=== PATIENT | male | born 1980 | race Asian ===

== ENCOUNTER 2022-01-09 08:04 | Inpatient (IN) | payer BC, SELFPAY ==
[~2022-01-09] VITALS: Ht 175.3 cm; Wt 76.7 kg
--- NOTE | 2022-01-09 08:05 | NUR ---
Pt triaged and placed in room 1 for evaluation. Erlinda RN to assume care of patient.
--- NOTE | 2022-01-09 08:09 | NUR ---
EKG DONE AT BEDSIDE AND GIVEN TO ATTENDING MD
--- NOTE | 2022-01-09 08:11 | NUR ---
Pt BIBA re ALOC s/p suspicion of opiate OD. Pt was given Narcan in the field which was minimally effective. Pt noted to follow simple commands and open his eyes spontaneously, but has L sided weakness from previous CVA. Pt awaiting MD conklin.
--- NOTE | 2022-01-09 08:12 | NUR ---
Dr Lomeli to bedside to assess patient
[2022-01-09 08:13] VITALS: BP_SYST 106
[2022-01-09 09:05] LABS: ANION GAP 9 (5-15); CALCIUM 9.2 mg/dL (8.4-11.0); CHLORIDE 100 mmol/L (98-107); CREATININE 3.24 mg/dL (0.55-1.30); GLUCOSE 108 mg/dL (70-99); POTASSIUM 4.3 mmol/L (3.5-5.1); SODIUM SERUM 135 mmol/L (136-145); UREA NITROGEN, BLOOD 16 mg/dL (8-21)
[2022-01-09 09:08] LABS: BILIRUBIN,URINE NEGATIVE (NEGATIVE); BLOOD, URINE 3+ (NEGATIVE); COLOR,URINE YELLOW (YELLOW); GLUCOSE,URINE NEGATIVE (NEGATIVE); KETONES,URINE NEGATIVE (NEGATIVE); LEUKOCYTE ESTERASE ,URINE 3+ (NEGATIVE); NITRITE, URINE NEGATIVE (NEGATIVE); PH,URINE 6.5 (5.0-8.0); PROTEIN URINE NEGATIVE (NEGATIVE); UROBILINOGEN,URINE 0.2 (0.2-1.0)
[2022-01-09 09:11] LABS: BASOPHILS # (AUTO) 0.1 K/uL (0.0-0.2); BASOPHILS % (AUTO) 0.8 % (0.0-2.0); EOSINOPHILS # (AUTO) 0.2 K/uL (0.0-0.4); EOSINOPHILS % (AUTO) 2.6 % (0.0-4.0); HEMATOCRIT 33.7 % (36-54); HEMOGLOBIN 11.1 g/dL (14.0-18.0); LYMPHOCYTES # (AUTO) 1.1 K/uL (1.0-5.5); LYMPHOCYTES % (AUTO) 12.2 % (20.5-51.5); MEAN CORPUSCULAR HEMOGLOBIN 26 pg (27-31); MEAN CORPUSCULAR HGB CONC 33 % (32-36); MEAN CORPUSCULAR VOLUME 80 fL (79.0-98.0); MONOCYTES # (AUTO) 0.8 K/uL (0.0-1.0); MONOCYTES % (AUTO) 8.5 % (1.7-9.3); NEUTROPHILS # (AUTO) 6.9 K/uL (1.8-7.7); NEUTROPHILS % (AUTO) 75.9 % (40.0-70.0); PLATELET COUNT (AUTO) 581 K/uL (130-430); RED CELL DISTRIBUTION WIDTH 18.2 % (9.0-15.0); WHITE BLOOD COUNT (AUTO) 9.1 K/uL (4.8-10.8)
[2022-01-09 09:13] LABS: GFR AFRICAN AMERICAN 27 mL/min (>90)
[2022-01-09 09:15] LABS: PROTHROMBIN TIME 10.5 SECS (9.5-12.5)
[2022-01-09 09:25] LABS: ALANINE AMINOTRANSFERASE 12 U/L (12-78); ASPARTATE AMINOTRANSFERASE 14 U/L (10-37); TOTAL BILIRUBIN 0.3 mg/dL (0.0-1.0)
[2022-01-09 09:26] LABS: ACETAMINOPHEN < 1 ug/mL (1-30)
[2022-01-09 09:27] LABS: ALCOHOL, BLOOD < 3 mg/dL (<10)
[2022-01-09 09:34] LABS: C-REACTIVE PROTEIN QUANT 9.4 mg/dL (0-0.5)
[2022-01-09 09:39] LABS: BARBITURATE, URINE NEGATIVE (NEG <=200); BENZODIAZEPINE, URINE NEGATIVE (NEG <=150); CANNABINOID, URINE NEGATIVE (NEG <=50); COCAINE, URINE NEGATIVE (NEG <=150); METHAMPHETAMINES SCREEN,URINE NEGATIVE (NEG <=500); OPIATE, URINE NEGATIVE (NEG <=100); PHENCYCLIDINE SCREEN,URINE NEGATIVE (NEG <=25); UR TRICYCLIC ANTIDEPRESSANTS NEGATIVE (NEG <=300); URINE AMPHETAMINE NEGATIVE (NEG <=500); URINE METHADONE NEGATIVE (NEG <=200); URINE OXYCODONE SCREEN NEGATIVE (NEG <=100); URINE PROPOXYPHENE SCREEN NEGATIVE (NEG <=300)
[2022-01-09 09:46] LABS: ACETONE, SERUM NEGATIVE (NEGATIVE)
[2022-01-09 10:04] LABS: CLARITY/URINE SLIGHTLY HAZY (CLEAR)
[2022-01-09] MEDS ORDERED: BACL20TA PO (10:06)
[2022-01-09] MEDS ORDERED: HYDR-4038 PO (10:06)
[2022-01-09] MEDS ORDERED: DOCU250C14 PO (10:06)
[2022-01-09] MEDS ORDERED: LOVI40 SQ (10:06)
[2022-01-09] MEDS ORDERED: FAMO20TA8 PO (10:06)
[2022-01-09] MEDS ORDERED: BENA-6 PO (10:06)
[2022-01-09] MEDS ORDERED: TAMS-11 PO (10:06)
[2022-01-09] MEDS ORDERED: ELA10 PO (10:06)
[2022-01-09] MEDS ORDERED: PROXL60 PO (10:06)
[2022-01-09] MEDS ORDERED: NEU300 PO (10:06)
[2022-01-09 10:09] LABS: BACTERIA,URINE RARE /HPF (None Seen); WBC,URINE 20-50 /HPF (0-3)
--- NOTE | 2022-01-09 10:32 | NUR ---
patient reassess non verbal, unable to follow simple commands, vital stable safety maintained will continue to monitor.
--- NOTE | 2022-01-09 13:47 | NUR ---
Dr Bhardwaj visits patient at bedside no acute changes, mental status unchanged.
[2022-01-09 15:30] VITALS: BP_SYST 158
--- NOTE | 2022-01-09 15:30 | NUR ---
ADMISSION NOTE Received patient from ER via fran, received report from BENOIT Coffey. Patient admitted with diagnosis of Altered level of consciousness, possible overdose. Patient answers few simple "yes/no" questions, oriented only to time and self. Left extremities flaccid. Able to move/lift right extremities but weak. Reoriented to place and event. Oriented on hospital routine, call light, toileting and safety. Patient unable to verbalize understanding; will continue to educate and reorient. Bed locked in lowest position with alarm on. Will continue to monitor.
--- NOTE | 2022-01-09 15:53 | NUR ---
CONSULTATION PAGED REASON FOR CONSULTATION:ALOC WAS CONSULT CALED? PERSON WHO WAS NOTIFIED:TXT MESSAGED CONSULTING PHYSICIAN:DARLENE HENNING MANAGER [place] SPECIALTY:NEURO MANAGER [place] PHONE NUMBER:[phone] REQUESTING PHYSICIAN:ASHELY MCKINNEY
--- NOTE | 2022-01-09 15:58 | NUR ---
Patient will be admitted to care of nurse Grimm. Admitted to unit. Will go to room . Belongings list completed. Complete and up to date summary report printed. SBAR report to be given at bedside with opportunity for questions.
--- NOTE | 2022-01-09 15:58 | NUR ---
CONSULTATION PAGED REASON FOR CONSULTATION:ALOC WAS CONSULT CALED?Y PERSON WHO WAS NOTIFIED:[facility] CONSULTING PHYSICIAN:SHARON HUBBARD OPERATIONS [employer] SPECIALTY:ID OPERATIONS [employer] PHONE [phone]: REQUESTING PHYSICIAN:ASHELY MCKINNEY
--- NOTE | 2022-01-09 17:00 | NUR ---
Notes Patient awake and alert, oriented x 2. Patient's mom at bedside. No pain or distress noted. Call light in reach and bed in lowest position with alarm on. Encouraged to call and will monitor.
[2022-01-09 19:00] VITALS: BP_SYST 140
[2022-01-09] MEDS: D5/0.45 NS 1,000 ML IV SCH (19:09)
--- NOTE | 2022-01-09 19:40 | NUR ---
Closing Note Patient restless and appears anxious. Patient's mom at bedside. Paged Dr. Bhardwaj. Safety precautions throughout shift. Endorsed to night nurse.
[2022-01-09 19:59] LABS: THYROID STIMULATING HORMONE 2.44 uIu/mL (0.36-3.74)
[2022-01-09 20:00] VITALS: BP_SYST 101
[2022-01-09] MEDS: LORazepam 2 MG/ML VIAL IVP PRN (22:03)
[2022-01-10] VITALS: BP_SYST 115; BP_SYST 129
[2022-01-10 07:55] VITALS: BP_SYST 128
--- NOTE | 2022-01-10 08:01 | NUR ---
Received pt. Pt is aaox2, pt is now verbal and responding to verbal. Pt's mom at beside. Pt kept npo , waiting for swallow eval.
[2022-01-10 08:02] LABS: BASOPHILS # (AUTO) 0.1 K/uL (0.0-0.2); BASOPHILS % (AUTO) 1.3 % (0.0-2.0); EOSINOPHILS # (AUTO) 0.2 K/uL (0.0-0.4); EOSINOPHILS % (AUTO) 2.7 % (0.0-4.0); HEMATOCRIT 34.2 % (36-54); HEMOGLOBIN 10.9 g/dL (14.0-18.0); LYMPHOCYTES # (AUTO) 1.6 K/uL (1.0-5.5); LYMPHOCYTES % (AUTO) 17.7 % (20.5-51.5); MEAN CORPUSCULAR HEMOGLOBIN 26 pg (27-31); MEAN CORPUSCULAR HGB CONC 32 % (32-36); MEAN CORPUSCULAR VOLUME 82 fL (79.0-98.0); MONOCYTES # (AUTO) 0.7 K/uL (0.0-1.0); MONOCYTES % (AUTO) 8.3 % (1.7-9.3); NEUTROPHILS # (AUTO) 6.1 K/uL (1.8-7.7); PLATELET COUNT (AUTO) 617 K/uL (130-430); RED BLOOD CELL COUNT(AUTO) 4.19 MIL/uL (4.2-6.2); RED CELL DISTRIBUTION WIDTH 18.7 % (9.0-15.0); WHITE BLOOD COUNT (AUTO) 8.8 K/uL (4.8-10.8)
--- NOTE | 2022-01-10 08:26 | NUR ---
Nutrition Update Harjit Scale 11 noted. Pt admitted for ALOC, overdose. Diet: NPO Pending Swallow Screen BMI: 25 kg/m2 RD to follow per nutrition care standards.
[2022-01-10 08:41] LABS: ALBUMIN 2.7 g/dL (3.4-4.8); CALCIUM 8.9 mg/dL (8.4-11.0); CREATININE 4.1 mg/dL (0.55-1.30); POTASSIUM 4.4 mmol/L (3.5-5.1); TOTAL BILIRUBIN 0.3 mg/dL (0.0-1.0)
--- NOTE | 2022-01-10 11:10 | NUR ---
SPEECH THERAPY WAS CALLED TO [facility] OF [facility], RE: SWALLOWING EVAL (HX OF CVA). LEFT IAN A VOICE MESSAGE.
--- NOTE | 2022-01-10 11:26 | NUR ---
THE SPEECH THERAPIST, AURELIANO IS COMIMG THIS AFTERNOON BETWEEN 1500 - 1700.
--- NOTE | 2022-01-10 13:48 | NUR ---
GRICEL Harrisree here and informed her that pt had not bm for 4 days and mother requesting for lactulose
[2022-01-10] MEDS: D5/0.45 NS 1,000 ML IV SCH ×2 (15:07→17:56)
--- NOTE | 2022-01-10 15:47 | NUR ---
PT WAS SEEN FOR DYSPHAGIA. PT WAS ABLE TO SAFELY SWALLOW PUREE DIET WI9TH THIN LIQUID. MILD DIFFICULTY WITH MASTICATION SKILLS FOR MS DIET. RECOMMENDATION PUREE DIET WITH THIN LIQUID
[2022-01-10] MEDS: LORazepam 2 MG/ML VIAL IVP PRN (15:54)
--- NOTE | 2022-01-10 15:56 | NUR ---
pt given ativan 1 mg, for agitation/ anxiety
[2022-01-10 16:00] VITALS: BP_SYST 144
--- NOTE | 2022-01-10 16:00 | NUR ---
dr hammond gave okay to start pt on pureed with thin liquids.
--- NOTE | 2022-01-10 16:55 | NUR ---
Dietitian Recommendations Pureed, cardiac diet w/ Ensure Enlive TID (ONS yields 1050 kcal/day, 60 gm protein/day). Consider appetite stimulant. DEISY SANTIAGO Please refer to Nutrition Assessment for details. Signed: 01/10/22 at 165 by Sonya TEMPLETON <Co-Signature Required> Co-Signed: 01/10/22 at [address] Addendum: 01/10/22 at 1655 by Sonya TEMPLETON Amended: Links added.
--- NOTE | 2022-01-10 17:12 | NUR ---
Dr Fletcher here and talking to pt and pt's mother at bedside.
[2022-01-10] MEDS ORDERED: cefTRIAXone 1 GM in D5W 50 ML IV SCH (18:00)
--- NOTE | 2022-01-10 18:49 | NUR ---
Per geothermal hvac technician, pt confused and pulling out his electrodes, unable to do EEG.
[2022-01-10 20:25] VITALS: BP_SYST 129
[2022-01-10 23:17] LABS: URINE SODIUM, RANDOM 52 mmol/L (40-220)
[2022-01-11 00:30] VITALS: BP_SYST 120
--- NOTE | 2022-01-11 04:00 | NUR ---
PT RESTING IN BED COMFORTABLY, NO CHANGES NOTED FROM PREVIOUS ASSESSMENT, WILL CONTINUE TO MONITOR.
--- NOTE | 2022-01-11 07:36 | NUR ---
SHIFT REPORT REPORT GIVEN TO BENOIT CARRERO FOR CONTINUITY OF CARE. ALL QUESTIONS WERE ANSWERED AND RN VERBALIZED UNDERSTANDING.
[2022-01-11] MEDS ORDERED: cefTRIAXone 1 GM in D5W 50 ML IV SCH (08:00)
[2022-01-11 08:11] VITALS: BP_SYST 125
[2022-01-11 08:12] LABS: BASOPHILS # (AUTO) 0.1 K/uL (0.0-0.2); BASOPHILS % (AUTO) 0.8 % (0.0-2.0); EOSINOPHILS # (AUTO) 0.2 K/uL (0.0-0.4); EOSINOPHILS % (AUTO) 2.9 % (0.0-4.0); HEMATOCRIT 28.9 % (36-54); HEMOGLOBIN 9.4 g/dL (14.0-18.0); LYMPHOCYTES # (AUTO) 1.1 K/uL (1.0-5.5); LYMPHOCYTES % (AUTO) 13.5 % (20.5-51.5); MEAN CORPUSCULAR HEMOGLOBIN 26 pg (27-31); MEAN CORPUSCULAR HGB CONC 33 % (32-36); MEAN CORPUSCULAR VOLUME 81 fL (79.0-98.0); MONOCYTES # (AUTO) 0.8 K/uL (0.0-1.0); MONOCYTES % (AUTO) 9.7 % (1.7-9.3); NEUTROPHILS # (AUTO) 6.2 K/uL (1.8-7.7); NEUTROPHILS % (AUTO) 73.1 % (40.0-70.0); PLATELET COUNT (AUTO) 522 K/uL (130-430); RED BLOOD CELL COUNT(AUTO) 3.57 MIL/uL (4.2-6.2); WHITE BLOOD COUNT (AUTO) 8.4 K/uL (4.8-10.8)
[2022-01-11 08:29] LABS: ALBUMIN 2.5 g/dL (3.4-4.8); CALCIUM 8.5 mg/dL (8.4-11.0); CREATININE 3.94 mg/dL (0.55-1.30); PHOSPHORUS 5.2 mg/dL (2.7-4.5); POTASSIUM 4.4 mmol/L (3.5-5.1); TOTAL BILIRUBIN 0.3 mg/dL (0.0-1.0)
[2022-01-11 11:24] VITALS: BP_SYST 124
[2022-01-11] MEDS: LACTULOSE 20 GM/30 ML UDC PO PRN (13:25)
[2022-01-11] MEDS: D5/0.45 NS 1,000 ML IV SCH (14:23)
[2022-01-11 15:25] VITALS: BP_SYST 138
--- NOTE | 2022-01-11 19:33 | NUR ---
pt given lactulose, pt has no bm since the . pt has been stable.
--- NOTE | 2022-01-11 20:15 | NUR ---
NOTES: report given by nurse Romero. in no acute distress. Addendum: 01/12/22 at 0010 by Lea Lindquist RN nurse Thrasher gave me report instead of nurse Romero.
[2022-01-11 22:00] VITALS: BP_SYST 178
[2022-01-11] MEDS: hydrALAZINE HCL 20 MG/ML VIAL IVP PRN (22:18)
--- NOTE | 2022-01-11 22:18 | NUR ---
NOTES: Apresoline IV given for SBP 178/108. HR 115. O2 Sat 99%.
--- NOTE | 2022-01-11 22:24 | NUR ---
NOTES: called Dr. Bhardwaj, informed about the fever T101.7 and high BP 178/108, with Tylenol order, informd IV BP med given already.
--- NOTE | 2022-01-11 22:30 | NUR ---
NOTES: repositioned, turn to sides. cooling measures, ice pack applied while waiting for Tylenol order to be verified, have to call MD. pt. mom made aware. noted pt. left shoulder with some kind of brace , spt. with left sided weaknees. both arm noted to get stiff. flaccid legs. elevate on pillow. shoulder pain noted. call light within reach. pt. mom will stay at bedside. charge nurse Tony aware and also attending to pt. needs.
--- NOTE | 2022-01-11 22:40 | NUR ---
BOW MAKER GIFT WRAPPING CALLED , NOTIFIED HOUSE SUP THAT PTS MOTHER IS DEMANDING TO CALL ER DR TO ASSESS THE PT . CHARGE NURSE TRIED TO EXPLAIN TO THE MOTHER THAT ER MD ONLY COMES FOR EMERGENCY SITUATIONS BUT MOTHER IS DEMANDING TO CALL ER DR. CALLED AND NOTIFIED BOW MAKER GIFT WRAPPING . PT IS AWAKE , ANSWERED TO THE QUESTIONS ASKED , PT HAS FEVER . HR IS ON THE 130S .PT IS RECEIVING COOLING MEASURES .
[2022-01-11] MEDS: ACETAMINOPHEN 325 MG TABLET PO PRN (22:44)
--- NOTE | 2022-01-11 22:52 | NUR ---
PAGED: DR SMALLS PAGED . MOTHER AT BEDSIDE IS CONCERNED ABOUT THE PT CONDITION . MOTHER STATED " HE IS HAVING FEVER , HE DOESNT LOOK GOOD "MOTHER ASKING FOR INHOUSE NOTIFIED MOTHER THAT IN HOUSE MD IS NOT AVAILABLE HERE UNLESS ITS FOR EMERGENCY . INFORMED MOTHER THAT PRIMARY RN NOTIFIED DR BERRY ABOUT THE PT CONDITION . ALSO NOTIFIED MOTHER THAT WILL PAGE DR SMALLS TO NOTIFY .
--- NOTE | 2022-01-11 23:20 | NUR ---
MEDICATION RECON: MOTHER COMPLAININED THAT PTS MEDICATION HE DIDNT RECEIVE IT FOR THE LAST 2 DAYS , CHECKED PT EMAR AND MED RECE , NOTICED THAT MEDICATION REC WAS NOT DONE , CALLED AND TALKED WITH DR BERRY , READ EACH MEDICATION IN THE MEDICATION REC LIST , MD ORDERED TO CONTINUE EVERY MEDICATION INCLUDING LOVENOX . ALSO NOTIFIED MD ABOUT THE FEVER , MD ORDERED BLOOD CULTURE , URINE CULTURE , NS 500 ML BOLUS . NOTIFIED MD ABOUT THE BUN /CREATININE LEVEL ,MD STILL WANTS TO GIVE BOLUS 500 ML. AND CHANGE PT TO TELE. Addendum: 01/12/22 at 0041 by Tony Salcedo RN DR BERRY IS MADE AWARE OF PT HR 138, BP 152/90 AFTER HYDR[address] IV . DR SMALLS ALSO CALLED BACK , INFORMED MD THAT PT IS HAVING FEVER , HR IS ON THE 130S , DR BERRY ORDERED BLOOD CULTURE, URINE CULTURE AND NS 500 ML BOLUS . ND IS OK WITH DR ESQUIVEL ORDER. DR SMALLS STATED HE WILL BE COMING LATER TONIGHT AND HE WILL CHECK THE PT .
[2022-01-11] MEDS ORDERED: hydrALAZINE HCL 25 MG TABLET PO PRN (23:30)
[2022-01-11] MEDS ORDERED: NS 500 ML IV ONE (23:30)
--- NOTE | 2022-01-12 00:05 | NUR ---
NOTES: endorsed pt. to nurse Heather, pt. placed on investigations chief , shows sinus tach. charge nurse Tony took care of med recon. and got orderd from Dr. Bhardwaj.nursing supervisor [employer] Zainab talked to pt. mom per request earlier. pt. mom c/o nothing have talk to her.
[2022-01-12] MEDS: LORazepam 2 MG/ML VIAL IVP PRN ×3 (00:17→21:26)
--- NOTE | 2022-01-12 00:17 | NUR ---
Continuity of care Received report from BENOIT Valenzuela. Pt alert, awake, Temp 99.6, cooling measures continued. Pt/Pt's mom requesting Ativan. Ativan 1mg IVP administered as needed. Call light within reach. To monitor.
[2022-01-12 00:41] VITALS: BP_SYST 142
--- NOTE | 2022-01-12 01:30 | NUR ---
MD rounds Dr. Renae (ID) rounds and spoke with pt's mom at bedside.
--- NOTE | 2022-01-12 01:35 | NUR ---
Grecia collected and sent to lab per MD order. Addendum: 01/12/22 at 0147 by Heather Sandoval RN Temp 98.0 taken temporal.
[2022-01-12] MEDS: D5/0.45 NS 1,000 ML IV SCH ×2 (02:44→18:47)
--- NOTE | 2022-01-12 02:45 | NUR ---
Pt sleeping soundly, HR is 108 on the Tele monitor. To monitor.
[2022-01-12 03:00] LABS: BASOPHILS # (AUTO) 0.1 K/uL (0.0-0.2); BASOPHILS % (AUTO) 0.6 % (0.0-2.0); EOSINOPHILS # (AUTO) 0.1 K/uL (0.0-0.4); EOSINOPHILS % (AUTO) 1.1 % (0.0-4.0); HEMATOCRIT 29.4 % (36-54); HEMOGLOBIN 9.7 g/dL (14.0-18.0); LYMPHOCYTES # (AUTO) 0.9 K/uL (1.0-5.5); LYMPHOCYTES % (AUTO) 8.5 % (20.5-51.5); MEAN CORPUSCULAR HEMOGLOBIN 27 pg (27-31); MEAN CORPUSCULAR HGB CONC 33 % (32-36); MEAN CORPUSCULAR VOLUME 81 fL (79.0-98.0); MONOCYTES # (AUTO) 0.9 K/uL (0.0-1.0); MONOCYTES % (AUTO) 8.6 % (1.7-9.3); NEUTROPHILS # (AUTO) 8.9 K/uL (1.8-7.7); NEUTROPHILS % (AUTO) 81.2 % (40.0-70.0); PLATELET COUNT (AUTO) 503 K/uL (130-430); RED BLOOD CELL COUNT(AUTO) 3.64 MIL/uL (4.2-6.2); RED CELL DISTRIBUTION WIDTH 18.5 % (9.0-15.0); WHITE BLOOD COUNT (AUTO) 10.9 K/uL (4.8-10.8)
[2022-01-12 03:10] LABS: CALCIUM 7.9 mg/dL (8.4-11.0); CREATININE 3.62 mg/dL (0.55-1.30); POTASSIUM 4.5 mmol/L (3.5-5.1)
[2022-01-12 08:20] VITALS: BP_SYST 116
--- NOTE | 2022-01-12 08:20 | NUR ---
INITIAL ROUNDS Received pt AAOx3, no s/s resp distress, no c/o pain or discomfort. Pt mostly upset with pureed diet-requesting a change in diet-will check on order and swallow evaluation. Pt's mother at bedside. Plan of care for the day reviewed with pt and pt's mother-both verbalized their understanding. Pt c/o constipation x 7 days-will inform MD. Noted pt with left-sided weakness. Reyes draining to gravity with yellow urine. Pain management, disease process, skin and safety discussed-teach back done. Side rails up x3, bed alarm on and room across from nursing station for safety, call light within reach.
[2022-01-12] MEDS ORDERED: TAMSULOSIN HCL 0.4 MG CAP PO SCH (09:00)
[2022-01-12] MEDS ORDERED: BACLOFEN 10 MG TABLET PO SCH (09:00)
[2022-01-12] MEDS: GABAPENTIN 300 MG CAPSULE PO SCH ×3 (09:39→21:03)
[2022-01-12] MEDS: DOCUSATE SODIUM 250 MG CAPSULE PO SCH ×2 (09:40→21:03)
[2022-01-12] MEDS: lisinopriL 20 MG TABLET PO SCH (09:40)
[2022-01-12] MEDS: NIFEdipine 30 MG TAB.ER.24 PO SCH (09:40)
[2022-01-12] MEDS: FAMOTIDINE 20 MG TABLET PO SCH (09:40)
[2022-01-12] MEDS: TAMSULOSIN HCL 0.4 MG CAP PO SCH (09:40)
[2022-01-12] MEDS: LACTULOSE 20 GM/30 ML UDC PO PRN (09:41)
[2022-01-12] MEDS: cefTRIAXone 2 GM in D5W 50 ML IV SCH (09:41)
[2022-01-12] MEDS: ENOXAPARIN SODIUM 30 MG/0.3 ML SYRINGE SQ SCH (09:50)
--- NOTE | 2022-01-12 10:20 | NUR ---
TO MRI Pt left floor via gurney to MRI in no distress.
[2022-01-12 11:23] VITALS: BP_SYST 133
[2022-01-12 15:15] VITALS: BP_SYST 125
--- NOTE | 2022-01-12 15:43 | NUR ---
ST EVALUATION COMPLETED. ST TX NOT INDICATED AT THIS TIME. RECOMMEND PO DIET OF REGULAR TEXTURE AND THIN LIQUIDS. DISTANT SUPERVISION FOR ASPIRATION PRECAUTIONS
--- NOTE | 2022-01-12 18:45 | NUR ---
FEVER/CONFUSED Pt confused, talking nonsensically, pt's temperature 103.6 F, pt given Tylenol as ordered for fever and ice packs placed to pt's hot spots. Pt also a little confused and agitated-pulling at his telemetry leads-pt given Ativan as ordered. Pt's mother at bedside.
[2022-01-12] MEDS: ACETAMINOPHEN 325 MG TABLET PO PRN (18:46)
--- NOTE | 2022-01-12 19:30 | NUR ---
CLOSING NOTE Pt still confused at times, temperature now 98.6 F. IVF infusing well to RFA at ordered rate with no s/s infiltration to site. No s/s resp distress, no c/o pain or discomfort. Skin and safety precautions remain in place. Pt's mother at bedside. Call light within reach.
[2022-01-12] MEDS: BACLOFEN 10 MG TABLET PO SCH (21:02)
[2022-01-12] MEDS: AMITRIPTYLINE HCL 10 MG TABLET (ELAVIL) PO SCH (21:03)
[2022-01-12 23:20] VITALS: BP_SYST 99
[2022-01-13 01:07] VITALS: BP_SYST 107
[2022-01-13] MEDS: LORazepam 2 MG/ML VIAL IVP PRN ×2 (01:20→20:23)
[2022-01-13 01:28] VITALS: BP_SYST 135
[2022-01-13] MEDS: D5/0.45 NS 1,000 ML IV SCH ×2 (03:25→15:29)
--- NOTE | 2022-01-13 07:01 | NUR ---
CLOSING NOTES: PATIENT SLEEPING WELL WITHOUT ANY SIGNS OF DISTRESS. PATIENT HAS EPISODES OF CONFUSION PULLING OUT LINES AND TUBES LAST NIGHT DURING SHIFT. PATIENT WAS GIVEN PRN ATIVAN TO CALM HIM DOWN.PATIENT ABLE TO REST AFTER MIDNIGHT. ENDROSING CONITNUITY OF CARE TO MORNING SHIFT NURSE.
[2022-01-13 07:33] LABS: CALCIUM 8.4 mg/dL (8.4-11.0); CREATININE 3.22 mg/dL (0.55-1.30); POTASSIUM 4.1 mmol/L (3.5-5.1)
[2022-01-13 07:37] LABS: BASOPHILS # (AUTO) 0.1 K/uL (0.0-0.2); BASOPHILS % (AUTO) 0.9 % (0.0-2.0); EOSINOPHILS # (AUTO) 0.1 K/uL (0.0-0.4); EOSINOPHILS % (AUTO) 1.2 % (0.0-4.0); HEMATOCRIT 28.3 % (36-54); HEMOGLOBIN 9.2 g/dL (14.0-18.0); LYMPHOCYTES % (AUTO) 10.2 % (20.5-51.5); MEAN CORPUSCULAR HEMOGLOBIN 26 pg (27-31); MEAN CORPUSCULAR HGB CONC 33 % (32-36); MEAN CORPUSCULAR VOLUME 81 fL (79.0-98.0); MONOCYTES # (AUTO) 0.9 K/uL (0.0-1.0); MONOCYTES % (AUTO) 8.6 % (1.7-9.3); NEUTROPHILS % (AUTO) 79.1 % (40.0-70.0); PLATELET COUNT (AUTO) 487 K/uL (130-430); RED BLOOD CELL COUNT(AUTO) 3.52 MIL/uL (4.2-6.2); RED CELL DISTRIBUTION WIDTH 18.6 % (9.0-15.0); WHITE BLOOD COUNT (AUTO) 10.2 K/uL (4.8-10.8)
[2022-01-13 08:00] VITALS: BP_SYST 119
[2022-01-13] MEDS: GABAPENTIN 300 MG CAPSULE PO SCH ×3 (09:15→20:22)
[2022-01-13] MEDS: cefTRIAXone 2 GM in D5W 50 ML IV SCH (09:15)
[2022-01-13] MEDS: NIFEdipine 30 MG TAB.ER.24 PO SCH (09:16)
[2022-01-13] MEDS: ENOXAPARIN SODIUM 30 MG/0.3 ML SYRINGE SQ SCH (09:16)
[2022-01-13] MEDS: TAMSULOSIN HCL 0.4 MG CAP PO SCH (09:17)
[2022-01-13] MEDS: DOCUSATE SODIUM 250 MG CAPSULE PO SCH ×2 (09:17→20:22)
[2022-01-13] MEDS: FAMOTIDINE 20 MG TABLET PO SCH (09:17)
[2022-01-13] MEDS: lisinopriL 20 MG TABLET PO SCH (09:25)
[2022-01-13] MEDS ORDERED: CIPR500T5 PO (11:07)
[2022-01-13 11:29] VITALS: BP_SYST 141
--- NOTE | 2022-01-13 13:45 | NUR ---
CONSULT CARDIO TACHYCARDIA HEART RATE SUSTAINING IN THE 130'S FOR [address] ROSA [phone] DR ROSA AWARE
--- NOTE | 2022-01-13 14:00 | NUR ---
PATIENT HEART RATE SUSTAINED IN THE 130S, SINUS TACHY FOR 2 HOURS, CALLED AND NOTIFIED DR BERRY, HE DID NOT ORDER MEDICATIONS BUT DID ORDER FOR CONSULT WITH DR ROSA. NOTIFIED HEALTH UNIT SUPERVISOR OF CONSULT ORDER.
[2022-01-13] MEDS: LACTULOSE 20 GM/30 ML UDC PO PRN (15:28)
[2022-01-13 15:32] VITALS: BP_SYST 137
[2022-01-13] MEDS ORDERED: METOPROLOL TARTRATE 25 MG TABLET PO ONE (16:00)
--- NOTE | 2022-01-13 16:00 | NUR ---
MOTHER AT BEDSIDE, EDUCATED ON PLAN OF CARE AND ANSWERED QUESTIONS APPROPRIATE. MOTHER VOICED UNDERSTANDING OF PLAN OF CARE.
--- NOTE | 2022-01-13 16:09 | NUR ---
SPOKE WITH DR ROSA, GAVE UPDATE ON PATIENT STATUS, ORDERED FOR DRUG SCREEN TO BE PERFORMED AND METOPROLOL TARTATE BID 25MG TAB AND ONE TIME DOSE NOW.
[2022-01-13 17:39] LABS: BARBITURATE, URINE NEGATIVE (NEG <=200); BENZODIAZEPINE, URINE POSITIVE (NEG <=150); CANNABINOID, URINE NEGATIVE (NEG <=50); COCAINE, URINE NEGATIVE (NEG <=150); METHAMPHETAMINES SCREEN,URINE NEGATIVE (NEG <=500); OPIATE, URINE NEGATIVE (NEG <=100); PHENCYCLIDINE SCREEN,URINE NEGATIVE (NEG <=25); UR TRICYCLIC ANTIDEPRESSANTS NEGATIVE (NEG <=300); URINE AMPHETAMINE NEGATIVE (NEG <=500); URINE METHADONE NEGATIVE (NEG <=200); URINE OXYCODONE SCREEN NEGATIVE (NEG <=100); URINE PROPOXYPHENE SCREEN NEGATIVE (NEG <=300)
--- NOTE | 2022-01-13 18:34 | NUR ---
NOTIFIED DR BERRY THAT PATIENT HAS CONSTIPATION FOR OVER 5 DAY DESPITE COLACE BID AND ENULOSE. ORDER MILK OF MAGNESIUM 30MG Q4PRN CONSTIPATION MAX 3 DOSES.
[2022-01-13] MEDS ORDERED: MILK OF MAGNESIA 30 ML UDC PO PRN (18:45)
--- NOTE | 2022-01-13 19:30 | NUR ---
OPENING NOTE RECEIVED REPORT FROM DAY SHIFT. PATIENT AWAKE IN BED, WITH MOTHER AT BEDSIDE. NO S/S OF RESPIRATORY DISTRESS, BREATHING EVEN AND UNLABORED, IV SITE INTACT AND PATENT WITH FLUIDS RUNNING AT ORDERED RATE. STODDARD CATHETER DRAINING BY GRAVITY, FALL AND SAFETY CHECKS IN PLACE, WITH BED IN LOWEST POSITION, BED ALARM ON AND CALL LIGHT WITHIN REACH.
[2022-01-13 20:00] VITALS: BP_SYST 109
[2022-01-13] MEDS: BACLOFEN 10 MG TABLET PO SCH (20:21)
[2022-01-13] MEDS: AMITRIPTYLINE HCL 10 MG TABLET (ELAVIL) PO SCH (20:22)
[2022-01-14 00:11] VITALS: BP_SYST 124
--- NOTE | 2022-01-14 00:15 | NUR ---
ROUNDS PATIENT SLEEPING, NO S/S OF ACUTE DISTRESS, FALL AND SAFETY CHECKS IN PLACE.
--- NOTE | 2022-01-14 06:55 | NUR ---
CLOSING NOTE PATIENT SLEEPING IN BED, WITH MOTHER AT BEDSIDE. NO S/S OF RESPIRATORY DISTRESS, BREATHING EVEN AND UNLABORED, IV SITE INTACT AND PATENT WITH FLUIDS RUNNING AT ORDERED RATE. STODDARD CATHETER DRAINING BY GRAVITY, FALL AND SAFETY CHECKS IN PLACE, WITH BED IN LOWEST POSITION, BED ALARM ON AND CALL LIGHT WITHIN REACH, ALL NEEDS MET THROUGHOUT SHIFT.
[2022-01-14 08:30] VITALS: BP_SYST 104
[2022-01-14] MEDS: cefTRIAXone 2 GM in D5W 50 ML IV SCH (09:06)
[2022-01-14] MEDS: D5/0.45 NS 1,000 ML IV SCH ×3 (09:08→21:07)
[2022-01-14] MEDS: FAMOTIDINE 20 MG TABLET PO SCH (11:04)
[2022-01-14] MEDS: GABAPENTIN 300 MG CAPSULE PO SCH ×3 (11:05→21:05)
[2022-01-14] MEDS: TAMSULOSIN HCL 0.4 MG CAP PO SCH (11:06)
[2022-01-14] MEDS: METOPROLOL TARTRATE 25 MG TABLET PO SCH ×2 (11:06→21:06)
[2022-01-14] MEDS: ACETAMINOPHEN 325 MG TABLET PO PRN (11:08)
[2022-01-14] MEDS: DOCUSATE SODIUM 250 MG CAPSULE PO SCH ×2 (11:08→21:07)
[2022-01-14] MEDS: ENOXAPARIN SODIUM 30 MG/0.3 ML SYRINGE SQ SCH (11:10)
[2022-01-14] MEDS: NIFEdipine 30 MG TAB.ER.24 PO SCH (11:16)
[2022-01-14] MEDS: lisinopriL 20 MG TABLET PO SCH (11:16)
[2022-01-14 11:29] VITALS: BP_SYST 105
--- NOTE | 2022-01-14 14:00 | NUR ---
IV RE-INSERTION: Complaining of pain to IV site. Restarted on left forearm. Successful after [1 attempts. Resumed current IVF of d5 1/2 ns and regulated @100 per hour. Will observe for any signs of infiltration.
[2022-01-14 15:08] VITALS: BP_SYST 98
--- NOTE | 2022-01-14 15:53 | NUR ---
Discharge Planning: DCP faxed pt referral to [facility] [phone] Juany [phone] DCP to follow up.
[2022-01-14] MEDS ORDERED: BISACODYL 10 MG/SUPPOSITORY RC ONE (16:15)
[2022-01-14] MEDS: BACLOFEN 10 MG TABLET PO SCH (21:05)
[2022-01-14] MEDS: AMITRIPTYLINE HCL 10 MG TABLET (ELAVIL) PO SCH (21:06)
[2022-01-14] MEDS: QUEtiapine FUMARATE 25 MG TABLET PO SCH (21:07)
--- NOTE | 2022-01-14 22:45 | NUR ---
PATIENT HAD A BOWEL MOVEMENT AFTER 5 DAYS OF CONSTIPATION. MOTHER AT BEDSIDE AND AWARE. PATIENT CLEANED UP AND REPOSITIONED.
[2022-01-14 23:24] VITALS: BP_SYST 124
--- NOTE | 2022-01-15 00:45 | NUR ---
ROUNDS PATIENT SLEEPING, NO S/S OF ACUTE DISTRESS. FALL AND SAFETY CHECKS IN PLACED.
[2022-01-15] MEDS: LORazepam 2 MG/ML VIAL IVP PRN ×2 (01:48→07:11)
[2022-01-15 07:05] LABS: BASOPHILS # (AUTO) 0.1 K/uL (0.0-0.2); BASOPHILS % (AUTO) 0.7 % (0.0-2.0); EOSINOPHILS # (AUTO) 0.3 K/uL (0.0-0.4); EOSINOPHILS % (AUTO) 3.3 % (0.0-4.0); HEMATOCRIT 25.5 % (36-54); HEMOGLOBIN 8.5 g/dL (14.0-18.0); LYMPHOCYTES # (AUTO) 0.9 K/uL (1.0-5.5); LYMPHOCYTES % (AUTO) 9.9 % (20.5-51.5); MEAN CORPUSCULAR HEMOGLOBIN 27 pg (27-31); MEAN CORPUSCULAR HGB CONC 33 % (32-36); MEAN CORPUSCULAR VOLUME 81 fL (79.0-98.0); MONOCYTES # (AUTO) 0.8 K/uL (0.0-1.0); MONOCYTES % (AUTO) 7.9 % (1.7-9.3); NEUTROPHILS # (AUTO) 7.5 K/uL (1.8-7.7); NEUTROPHILS % (AUTO) 78.2 % (40.0-70.0); PLATELET COUNT (AUTO) 467 K/uL (130-430); RED BLOOD CELL COUNT(AUTO) 3.17 MIL/uL (4.2-6.2); RED CELL DISTRIBUTION WIDTH 18.1 % (9.0-15.0); WHITE BLOOD COUNT (AUTO) 9.6 K/uL (4.8-10.8)
[2022-01-15 07:22] LABS: ALBUMIN 2.1 g/dL (3.4-4.8); CALCIUM 8.6 mg/dL (8.4-11.0); CREATININE 2.52 mg/dL (0.55-1.30); POTASSIUM 4.2 mmol/L (3.5-5.1); TOTAL BILIRUBIN 0.1 mg/dL (0.0-1.0)
--- NOTE | 2022-01-15 08:00 | NUR ---
Opening notes: Patient resting in bed. Confused. Breathing even and non labored to RA. Fall, safety and aspiration measures reinforced. Bed locked, alarm on and in lowest position. Call light within reach.
[2022-01-15 08:15] VITALS: BP_SYST 129
[2022-01-15] MEDS: D5/0.45 NS 1,000 ML IV SCH ×2 (09:02→17:07)
[2022-01-15] MEDS: cefTRIAXone 2 GM in D5W 50 ML IV SCH (09:03)
[2022-01-15] MEDS: DOCUSATE SODIUM 250 MG CAPSULE PO SCH ×2 (09:54→20:48)
[2022-01-15] MEDS: QUEtiapine FUMARATE 25 MG TABLET PO SCH ×2 (09:54→20:48)
[2022-01-15] MEDS: TAMSULOSIN HCL 0.4 MG CAP PO SCH (09:54)
[2022-01-15] MEDS: FAMOTIDINE 20 MG TABLET PO SCH (09:54)
[2022-01-15] MEDS: NIFEdipine 30 MG TAB.ER.24 PO SCH (09:54)
[2022-01-15] MEDS: METOPROLOL TARTRATE 25 MG TABLET PO SCH ×2 (09:55→20:50)
[2022-01-15] MEDS: lisinopriL 20 MG TABLET PO SCH (09:55)
[2022-01-15] MEDS: GABAPENTIN 300 MG CAPSULE PO SCH ×3 (09:55→20:48)
[2022-01-15] MEDS: ENOXAPARIN SODIUM 30 MG/0.3 ML SYRINGE SQ SCH (09:56)
--- NOTE | 2022-01-15 11:30 | NUR ---
RN NOTES: INCONTINENT CARE DONE. SKIN INTACT. NO S/S OF ACUTE DISTRESS NOTED. BED LOCKED, ALARM ON AND IN LOWEST POSITION.
[2022-01-15 12:15] VITALS: BP_SYST 109
[2022-01-15 16:15] VITALS: BP_SYST 114
--- NOTE | 2022-01-15 16:30 | NUR ---
RN NOTES: INCONTINENT CARE DONE. REPOSITIONED. NO S/S OF ACUTE DISTRESS NOTED. FALL AND SAFETY MEASURES RENDERED.
--- NOTE | 2022-01-15 17:47 | NUR ---
Nutrition F/U Admitting Diagnosis ALOC, overdose Reviewed Pertinent Medical/Surgical Hx Medical Record Patient Family Member Medical History Comment: Per EMR review, PMH includes massive stroke. Pt also found w/ renal failure, altered mental status, and dehydration per EMR review 01/15. SARS-CoV-2 Ag (Rapid) Negative 01/09. Subjective Information RD bedside visit deferred d/t high RD load. Per EMR review, plan for pt to resume IVF, monitor BUN/CRE; pt had another ST swallow eval 01/12, at which time, ST rec for regular diet, thin liquids, and distant supervision for aspiration precautions; PO intake average of 36% x12 meal records; abd is soft and non-distended w/ active bowel sounds; last BM x1 01/14; Harjit scale: 14, no PIs noted. Pt is not yet meeting nutritional needs. ONS is warranted to optimize nutritional status. Current Diet Order/Nutrition Support Regular x3 days Pertinent Medications lorpessor, pepcid, lovenox, colace, lactulose, D5%NS at 100 ml/hr (408 kcal/day) Pertinent Labs Na 134 L, CRE 2.52 H, ALB 2.1 L, BUN 27 H, BG 112 H Height (Feet) 5 feet Height (Inches) 9.00 inches Weight (Pounds) 169 pounds -- stable since 01/10 Weight (Calculated Kilograms) 76.129345 kilograms Patient Weight 76.657 kg Body Mass Index 24.95 kg/m2 Usual Weight 220 lbs %UBW 77 %IBW 106 [place]/Adjusted Body Weight 160#/72.7 kg Recent Weight Change Yes - 51# unintentional wt loss/23% wt change within 3 mo d/t low appetite Weight Status Appropriate Usual Diet At Home Regular diet Estimated Energy Expenditure (kcals/day) 7315-0944 kcals/day (25-30 kcals/kg CBW for maintenance) Estimated Protein Required (g/day) 46-61 g/day (.6-.8 g/kg CBW d/t RF) Estimated Fluid Required (l/day) Per MD d/t RF Problem/Etiology/Signs/Symptoms *MODIFIED* Predicted suboptimal PO intake R/T poor appetite AEB poor PO intake records. *Ongoing Unintentional wt loss R/T acute on chronic health condition AEB Hx of massive CVA 3 mo ago and 51# wt loss/23% wt change within 3 mo a/w low appetite. *New Expected Outcomes/Goals Monitor appetite, consider EN initiation if swallow eval does not warrant PO intake, goal of pt meeting more than 75% of estimated nutritional intake, labs trending WNL, normal GI function, skin integrity/weight maintenance. Dietitian Recommendations * Regular diet w/ Ensure Enlive TID (ONS yields 1050 kcal/day, 60 gm protein/day) * Encourage increase PO intakes when awake/alert Follow Up Moderate Risk: F/U in 3-5 days
--- NOTE | 2022-01-15 17:53 | NUR ---
Dietitian Recommendations * Regular diet w/ Ensure Enlive TID (ONS yields 1050 kcal/day, 60 gm protein/day) * Encourage increase PO intakes when awake/alert LP, RD Please refer to Nutrition F/U for details.
--- NOTE | 2022-01-15 18:43 | NUR ---
CLOSING NOTES: PATIENT RESTING IN BED. MOTHER AT BEDSIDE. CONFUSED. NO S/S OF ACUTE DISTRESS NOTED. IV INFUSING WELL. BED LOCKED, ALARM ON AND IN LOWEST POSITION. WILL CONTINUE MONITOR UNTIL ENDORSE TO FULFILLMENT COORDINATOR RN.
--- NOTE | 2022-01-15 19:15 | NUR ---
OPENING NOTE ENDORSED CARE FROM DAY SHIFT. PT IS SITTING IN BED WITH MOTHER BEDSIDE. PT IS IN NO APPARENT DISTRESS. FALL AND SAFETY PRECAUTIONS IN PLACE. CALL LIGHT WITHIN REACH, BED IN LOWEST POSITION. STODDARD DRAINING TO GRAVITY
--- NOTE | 2022-01-15 19:44 | NUR ---
Received report from BENOIT Wahl. James Colón RN
[2022-01-15 20:00] VITALS: BP_SYST 128
[2022-01-15] MEDS: BACLOFEN 10 MG TABLET PO SCH (20:48)
[2022-01-15] MEDS: AMITRIPTYLINE HCL 10 MG TABLET (ELAVIL) PO SCH (20:53)
[2022-01-15 21:10] VITALS: BP_SYST 125
[2022-01-16 00:15] VITALS: BP_SYST 140
[2022-01-16] MEDS: D5/0.45 NS 1,000 ML IV SCH ×3 (03:51→22:52)
[2022-01-16 06:10] LABS: BASOPHILS % (AUTO) 0.6 % (0.0-2.0); EOSINOPHILS # (AUTO) 0.3 K/uL (0.0-0.4); EOSINOPHILS % (AUTO) 4.2 % (0.0-4.0); HEMATOCRIT 24.6 % (36-54); HEMOGLOBIN 8.1 g/dL (14.0-18.0); LYMPHOCYTES % (AUTO) 13.6 % (20.5-51.5); MEAN CORPUSCULAR HEMOGLOBIN 27 pg (27-31); MEAN CORPUSCULAR HGB CONC 33 % (32-36); MEAN CORPUSCULAR VOLUME 81 fL (79.0-98.0); MONOCYTES # (AUTO) 0.6 K/uL (0.0-1.0); MONOCYTES % (AUTO) 7.6 % (1.7-9.3); NEUTROPHILS # (AUTO) 5.5 K/uL (1.8-7.7); PLATELET COUNT (AUTO) 531 K/uL (130-430); RED BLOOD CELL COUNT(AUTO) 3.04 MIL/uL (4.2-6.2); RED CELL DISTRIBUTION WIDTH 18.3 % (9.0-15.0); WHITE BLOOD COUNT (AUTO) 7.4 K/uL (4.8-10.8)
[2022-01-16 06:13] LABS: CALCIUM 8.6 mg/dL (8.4-11.0); CREATININE 2.05 mg/dL (0.55-1.30)
[2022-01-16 06:14] LABS: TOTAL IRON BIND. CAPACITY 114 ug/dL (250-450)
--- NOTE | 2022-01-16 07:04 | NUR ---
OPENING NOTE ENDORSED CARE TO DAY SHIFT. PT IS SLEEPING IN BED WITH MOTHER BEDSIDE. PT IS IN NO APPARENT DISTRESS. FALL AND SAFETY PRECAUTIONS IN PLACE. CALL LIGHT WITHIN REACH, BED IN LOWEST POSITION. ARLYN DRAINING TO GRAVITY Addendum: 01/16/22 at 0709 by Koffi Monreal LVN *cLOSING NOTES
--- NOTE | 2022-01-16 08:08 | NUR ---
OPENING NOTES: PATIENT RESTING IN BED. BREATHING EVEN AND NON LABORED TO RA. IV INFUSING WELL. FALL SAFETY AND ASPIRATION MEASURES REINFORCED. CALL LIGHT WITHIN REACH.
[2022-01-16 08:13] VITALS: BP_SYST 136
[2022-01-16] MEDS: GABAPENTIN 300 MG CAPSULE PO SCH ×3 (08:43→21:22)
[2022-01-16] MEDS: lisinopriL 20 MG TABLET PO SCH (08:44)
[2022-01-16] MEDS: DOCUSATE SODIUM 250 MG CAPSULE PO SCH ×2 (08:44→21:20)
[2022-01-16] MEDS: NIFEdipine 30 MG TAB.ER.24 PO SCH (08:44)
[2022-01-16] MEDS: TAMSULOSIN HCL 0.4 MG CAP PO SCH (08:45)
[2022-01-16] MEDS: FAMOTIDINE 20 MG TABLET PO SCH (08:45)
[2022-01-16] MEDS: QUEtiapine FUMARATE 25 MG TABLET PO SCH ×2 (08:45→21:22)
[2022-01-16] MEDS: METOPROLOL TARTRATE 25 MG TABLET PO SCH ×2 (08:45→21:22)
[2022-01-16] MEDS: ENOXAPARIN SODIUM 30 MG/0.3 ML SYRINGE SQ SCH (08:48)
[2022-01-16] MEDS: cefTRIAXone 2 GM in D5W 50 ML IV SCH (08:54)
--- NOTE | 2022-01-16 10:45 | NUR ---
RN NOTES: PATIENT CONFUSED. NO S/S OF ACUTE DISTRESS NOTED. MOTHER AT BEDSIDE. BED LOCKED, ALARM ON AND IN LOWEST POSITION. CALL LIGHT WITHIN REACH.
[2022-01-16 11:48] VITALS: BP_SYST 118
--- NOTE | 2022-01-16 16:00 | NUR ---
CM: Discharge barriers: lethargic , not eating per nursing staff due to mental status.
--- NOTE | 2022-01-16 16:00 | NUR ---
RN NOTES: INCONTINENT CARE DONE. REPOSITIONED. SKIN INTACT. NO S/S OF ACUTE DISTRESS NOTED.
[2022-01-16 16:52] VITALS: BP_SYST 121
--- NOTE | 2022-01-16 18:47 | NUR ---
CLOSING NOTES: PATIENT EATING DINNER ASSISTED BY HER MOTHER. HOB ELEVATED. NO S/S OF ACUTE DISTRESS NOTED. FALL, SAFETY AND ASPIRATION MEASURES RENDERED. NEEDS MET THROUGHOUT SHIFT. WILL CONTINUE MONITOR UNTIL ENDORSE TO SQL APPLICATION DEVELOPER RN.
--- NOTE | 2022-01-16 19:18 | NUR ---
Report received from BENOIT Wahl. James Colón RN
[2022-01-16 20:22] VITALS: BP_SYST 128
[2022-01-16] MEDS ORDERED: SOD FERRIC GLUC COMPLEX/SUC 125 MG in NS 100 ML IV SCH (21:00)
--- NOTE | 2022-01-16 21:02 | NUR ---
CONSULTATION PAGED/CALLED Reason for Consultation: [] urinary retention Person Who was Notified: [] message left Consulting Physician: [] [facility] Coordinator Specialty: [] urology Ordering Physician: Dr. Fletcher
[2022-01-16] MEDS: BACLOFEN 10 MG TABLET PO SCH (21:20)
[2022-01-16] MEDS: AMITRIPTYLINE HCL 10 MG TABLET (ELAVIL) PO SCH (21:21)
[2022-01-17 00:34] VITALS: BP_SYST 130
[2022-01-17 07:10] LABS: BASOPHILS % (AUTO) 0.8 % (0.0-2.0); EOSINOPHILS # (AUTO) 0.4 K/uL (0.0-0.4); EOSINOPHILS % (AUTO) 7.3 % (0.0-4.0); HEMATOCRIT 24.2 % (36-54); LYMPHOCYTES % (AUTO) 18.9 % (20.5-51.5); MEAN CORPUSCULAR HEMOGLOBIN 27 pg (27-31); MEAN CORPUSCULAR HGB CONC 33 % (32-36); MEAN CORPUSCULAR VOLUME 81 fL (79.0-98.0); MONOCYTES # (AUTO) 0.4 K/uL (0.0-1.0); MONOCYTES % (AUTO) 7.2 % (1.7-9.3); NEUTROPHILS # (AUTO) 3.6 K/uL (1.8-7.7); NEUTROPHILS % (AUTO) 65.8 % (40.0-70.0); PLATELET COUNT (AUTO) 521 K/uL (130-430); RED BLOOD CELL COUNT(AUTO) 2.99 MIL/uL (4.2-6.2); RED CELL DISTRIBUTION WIDTH 17.9 % (9.0-15.0); WHITE BLOOD COUNT (AUTO) 5.4 K/uL (4.8-10.8)
[2022-01-17 07:16] LABS: CALCIUM 8.7 mg/dL (8.4-11.0); CREATININE 1.67 mg/dL (0.55-1.30); POTASSIUM 3.7 mmol/L (3.5-5.1)
--- NOTE | 2022-01-17 07:20 | NUR ---
Handoff with BENOIT Falcon. James Colón RN
--- NOTE | 2022-01-17 07:37 | NUR ---
Received patient in bed resting comfortably, AAOX2 no c/o pain or discomfort. Respirations are non-labored on room air. Skin is clean, warm and dry to touch. IV access is patent, dry and intact, no s/sx of redness or swelling observed. Reyes patent, draining by way of gravity. Bed is locked in lowest position, call light in reach, family at bedside. Nurse will continue care and monitor for changes in status.
[2022-01-17] MEDS: cefTRIAXone 2 GM in D5W 50 ML IV SCH (08:00)
[2022-01-17] MEDS: lisinopriL 20 MG TABLET PO SCH (09:27)
[2022-01-17] MEDS: QUEtiapine FUMARATE 25 MG TABLET PO SCH ×2 (09:27→21:46)
[2022-01-17] MEDS: FAMOTIDINE 20 MG TABLET PO SCH (09:28)
[2022-01-17] MEDS: DOCUSATE SODIUM 250 MG CAPSULE PO SCH ×2 (09:28→21:45)
[2022-01-17] MEDS: METOPROLOL TARTRATE 25 MG TABLET PO SCH ×2 (09:28→21:47)
[2022-01-17] MEDS: GABAPENTIN 300 MG CAPSULE PO SCH ×3 (09:28→21:44)
[2022-01-17] MEDS: NIFEdipine 30 MG TAB.ER.24 PO SCH (09:28)
[2022-01-17] MEDS: TAMSULOSIN HCL 0.4 MG CAP PO SCH (09:29)
[2022-01-17] MEDS: ENOXAPARIN SODIUM 30 MG/0.3 ML SYRINGE SQ SCH (09:34)
[2022-01-17] MEDS: SOD FERRIC GLUC COMPLEX/SUC 125 MG in NS 100 ML IV SCH (09:37)
[2022-01-17] MEDS: D5/0.45 NS 1,000 ML IV SCH (09:38)
[2022-01-17 09:49] VITALS: BP_SYST 140
[2022-01-17 11:24] VITALS: BP_SYST 147
[2022-01-17] MEDS: ACETAMINOPHEN 325 MG TABLET PO PRN (12:27)
--- NOTE | 2022-01-17 12:34 | NUR ---
Patient in bed resting comfortably, c/o pain, left leg . Respirations are non-labored on room air. Skin is clean, warm and dry to touch. IV access is patent, dry and intact, no s/sx of redness or swelling observed. Patient is medication compliant, no adverse affects observed. Bed is locked in lowest position, call light in reach. Nurse will continue care and monitor for changes in status.
[2022-01-17 13:43] VITALS: BP_SYST 147
[2022-01-17 17:21] VITALS: BP_SYST 138
--- NOTE | 2022-01-17 18:53 | NUR ---
Patient in bed resting comfortably, no c/o pain or discomfort. Respirations are non-labored on room air. Skin is clean, warm and dry to touch. IV access is patent, dry and intact, no s/sx of redness or swelling observed. Bed is locked in lowest position, call light in reach. Nurse will endorse patient to security shift manager nurse for continue care.
--- NOTE | 2022-01-17 18:54 | NUR ---
Patient in bed resting comfortably, no c/o pain or discomfort. Respirations are non-labored on room air. Skin is clean, warm and dry to touch. IV access is patent, dry and intact, no s/sx of redness or swelling observed. Bed is locked in lowest position, call light in reach. Nurse will endorse patient to mini shifter nurse for continue care.
[2022-01-17 20:00] VITALS: BP_SYST 117
[2022-01-17] MEDS: BACLOFEN 10 MG TABLET PO SCH (21:46)
[2022-01-17] MEDS: AMITRIPTYLINE HCL 10 MG TABLET (ELAVIL) PO SCH (21:46)
--- NOTE | 2022-01-17 21:51 | NUR ---
MEDS/ROUNDS Scheduled meds given. Pt resting in bed, no signs of distress noted. IVF infusing. Reyes cath patent and draining yellow urine to gravity. Family at bedside. Exit alarm on, bed in low and locked position. Call light in reach.
[2022-01-18 01:14] VITALS: BP_SYST 117
[2022-01-18] MEDS: D5/0.45 NS 1,000 ML IV SCH ×2 (02:49→20:42)
[2022-01-18 06:49] LABS: BASOPHILS # (AUTO) 0.1 K/uL (0.0-0.2); BASOPHILS % (AUTO) 0.9 % (0.0-2.0); EOSINOPHILS # (AUTO) 0.4 K/uL (0.0-0.4); EOSINOPHILS % (AUTO) 6.9 % (0.0-4.0); HEMATOCRIT 27.7 % (36-54); HEMOGLOBIN 8.9 g/dL (14.0-18.0); LYMPHOCYTES # (AUTO) 1.2 K/uL (1.0-5.5); LYMPHOCYTES % (AUTO) 20.9 % (20.5-51.5); MEAN CORPUSCULAR HEMOGLOBIN 26 pg (27-31); MEAN CORPUSCULAR HGB CONC 32 % (32-36); MEAN CORPUSCULAR VOLUME 82 fL (79.0-98.0); MONOCYTES # (AUTO) 0.3 K/uL (0.0-1.0); MONOCYTES % (AUTO) 5.7 % (1.7-9.3); NEUTROPHILS # (AUTO) 3.8 K/uL (1.8-7.7); NEUTROPHILS % (AUTO) 65.6 % (40.0-70.0); PLATELET COUNT (AUTO) 642 K/uL (130-430); RED CELL DISTRIBUTION WIDTH 17.9 % (9.0-15.0); WHITE BLOOD COUNT (AUTO) 5.8 K/uL (4.8-10.8)
[2022-01-18 07:13] LABS: CALCIUM 8.9 mg/dL (8.4-11.0); CREATININE 1.52 mg/dL (0.55-1.30); POTASSIUM 4.1 mmol/L (3.5-5.1)
[2022-01-18] MEDS: cefTRIAXone 2 GM in D5W 50 ML IV SCH (08:00)
[2022-01-18] MEDS: DOCUSATE SODIUM 250 MG CAPSULE PO SCH ×2 (09:00→20:50)
[2022-01-18] MEDS: TAMSULOSIN HCL 0.4 MG CAP PO SCH (09:46)
[2022-01-18] MEDS: lisinopriL 20 MG TABLET PO SCH (09:47)
[2022-01-18] MEDS: NIFEdipine 30 MG TAB.ER.24 PO SCH (09:47)
[2022-01-18] MEDS: QUEtiapine FUMARATE 25 MG TABLET PO SCH ×2 (09:47→20:50)
[2022-01-18] MEDS: FAMOTIDINE 20 MG TABLET PO SCH (09:48)
[2022-01-18] MEDS: METOPROLOL TARTRATE 25 MG TABLET PO SCH ×2 (09:48→20:51)
[2022-01-18] MEDS: GABAPENTIN 300 MG CAPSULE PO SCH ×3 (09:50→20:50)
[2022-01-18] MEDS: SOD FERRIC GLUC COMPLEX/SUC 125 MG in NS 100 ML IV SCH (10:04)
[2022-01-18] MEDS: ENOXAPARIN SODIUM 30 MG/0.3 ML SYRINGE SQ SCH (10:07)
[2022-01-18 12:44] VITALS: BP_SYST 127
--- NOTE | 2022-01-18 16:37 | NUR ---
Patient in bed resting comfortably, no c/o pain or discomfort. Respirations are non-labored on room air. Skin is clean, warm and dry to touch. IV access is patent, dry and intact, no s/sx of redness or swelling observed. Patient is medication compliant, no adverse affects observed. Bed is locked in lowest position, call light in reach. Nurse will continue care and monitor for changes in status.
[2022-01-18 16:42] VITALS: BP_SYST 121
--- NOTE | 2022-01-18 18:43 | NUR ---
Patient in bed resting comfortably, no c/o pain or discomfort. Respirations are non-labored on room air. Skin is clean, warm and dry to touch. IV access is patent, dry and intact, no s/sx of redness or swelling observed. Bed is locked in lowest position, call light in reach. Nurse will endorse patient to opening machine cleaner nurse for continue care.
[2022-01-18 20:00] VITALS: BP_SYST 140
[2022-01-18] MEDS: AMITRIPTYLINE HCL 10 MG TABLET (ELAVIL) PO SCH (20:50)
[2022-01-18] MEDS: BACLOFEN 10 MG TABLET PO SCH (20:51)
--- NOTE | 2022-01-18 20:55 | NUR ---
OPENING NOTE/MEDS Pt resting in bed with family at bedside. Scheduled meds and PRN milk of magnesia given for constipation. Reyes catheter patent and draining yellow urine to gravity. IVF infusing. Call light in reach, fall and safety precautions in place.
[2022-01-19 00:32] VITALS: BP_SYST 154
[2022-01-19 06:19] LABS: BASOPHILS # (AUTO) 0.1 K/uL (0.0-0.2); BASOPHILS % (AUTO) 0.9 % (0.0-2.0); EOSINOPHILS # (AUTO) 0.2 K/uL (0.0-0.4); EOSINOPHILS % (AUTO) 2.8 % (0.0-4.0); HEMATOCRIT 26.6 % (36-54); HEMOGLOBIN 8.6 g/dL (14.0-18.0); LYMPHOCYTES # (AUTO) 1.2 K/uL (1.0-5.5); LYMPHOCYTES % (AUTO) 19.9 % (20.5-51.5); MEAN CORPUSCULAR HEMOGLOBIN 26 pg (27-31); MEAN CORPUSCULAR HGB CONC 32 % (32-36); MEAN CORPUSCULAR VOLUME 81 fL (79.0-98.0); MONOCYTES # (AUTO) 0.3 K/uL (0.0-1.0); MONOCYTES % (AUTO) 5.5 % (1.7-9.3); NEUTROPHILS # (AUTO) 4.4 K/uL (1.8-7.7); NEUTROPHILS % (AUTO) 70.9 % (40.0-70.0); PLATELET COUNT (AUTO) 739 K/uL (130-430); RED BLOOD CELL COUNT(AUTO) 3.31 MIL/uL (4.2-6.2); RED CELL DISTRIBUTION WIDTH 17.4 % (9.0-15.0); WHITE BLOOD COUNT (AUTO) 6.2 K/uL (4.8-10.8)
[2022-01-19] MEDS: D5/0.45 NS 1,000 ML IV SCH ×2 (06:22→20:50)
[2022-01-19 06:35] LABS: CREATININE 1.23 mg/dL (0.55-1.30); POTASSIUM 4.1 mmol/L (3.5-5.1)
--- NOTE | 2022-01-19 08:00 | NUR ---
OPENING NOTES: PATIENT EATING BREAKFAST. HOB ELEVATED. BREATHING EVEN AND NON LABORED TO RA. MOTHER AT BEDSIDE. BED LOCKED, ALARM ON AND IN LOWEST POSITION. FALL, SAFETY AND ASPIRATION MEASURES REINFORCED. CALL LIGHT WITHIN REACH.
[2022-01-19 08:15] VITALS: BP_SYST 140
[2022-01-19] MEDS: GABAPENTIN 300 MG CAPSULE PO SCH ×3 (09:20→20:42)
[2022-01-19] MEDS: FAMOTIDINE 20 MG TABLET PO SCH (09:20)
[2022-01-19] MEDS: METOPROLOL TARTRATE 25 MG TABLET PO SCH ×2 (09:21→20:43)
[2022-01-19] MEDS: DOCUSATE SODIUM 250 MG CAPSULE PO SCH ×2 (09:21→20:44)
[2022-01-19] MEDS: NIFEdipine 30 MG TAB.ER.24 PO SCH (09:21)
[2022-01-19] MEDS: QUEtiapine FUMARATE 25 MG TABLET PO SCH ×2 (09:22→20:44)
[2022-01-19] MEDS: lisinopriL 20 MG TABLET PO SCH (09:22)
[2022-01-19] MEDS: TAMSULOSIN HCL 0.4 MG CAP PO SCH (09:22)
[2022-01-19] MEDS: ENOXAPARIN SODIUM 30 MG/0.3 ML SYRINGE SQ SCH (09:23)
[2022-01-19] MEDS: SOD FERRIC GLUC COMPLEX/SUC 125 MG in NS 100 ML IV SCH (09:24)
[2022-01-19] MEDS: cefTRIAXone 2 GM in D5W 50 ML IV SCH (10:09)
[2022-01-19 11:41] VITALS: BP_SYST 140
--- NOTE | 2022-01-19 12:00 | NUR ---
RN NOTE: INCONTINENT CARE DONE. LINEN CHANGED. NO S/S OF ACUTE DISTRESS NOTED. REPOSITIONED. MOTHER AT BEDSIDE.
[2022-01-19 15:44] VITALS: BP_SYST 161
--- NOTE | 2022-01-19 19:21 | NUR ---
CLOSING NOTE: PATIENT RESTING IN BED. NO S/S OF ACUTE DISTRESS NOTED. IV INFUSING WELL. NEEDS MET THROUGHOUT SHIFT. ENDORSED TO PHYSICIAN OFFICE REP RN.
[2022-01-19] MEDS: AMITRIPTYLINE HCL 10 MG TABLET (ELAVIL) PO SCH (20:44)
[2022-01-19] MEDS: BACLOFEN 10 MG TABLET PO SCH (20:44)
[2022-01-20 00:18] VITALS: BP_SYST 117
[2022-01-20 05:53] VITALS: BP_SYST 139
--- NOTE | 2022-01-20 06:57 | NUR ---
PATIENT IN BED RESTING WELL, REPOSITIONED AND BED ARMED AND POSITIONED TO SAFETY. CALL LIGHT PLACED WITHING REACH. FAMILY MEMBER ON BEDSIDE. NO SIGNS OF ACUTE DISTRESS NOTED.
--- NOTE | 2022-01-20 08:07 | NUR ---
OPENING NOTES: PATIENT RESTING IN BED. BREATHING EVEN AND NON LABORED TO RA. MOTHER AT BEDSIDE. DENIES ANY DISCOMFORT AT THIS TIME. BED LOCKED, ALARM ON AND IN LOWEST POSITION. FALL, SAFETY AND ASPIRATION MEASURES REINFORCED. CALL LIGHT WITHIN REACH.
[2022-01-20 08:23] VITALS: BP_SYST 146
[2022-01-20] MEDS: GABAPENTIN 300 MG CAPSULE PO SCH ×3 (09:07→20:52)
[2022-01-20] MEDS: NIFEdipine 30 MG TAB.ER.24 PO SCH (09:07)
[2022-01-20] MEDS: QUEtiapine FUMARATE 25 MG TABLET PO SCH ×2 (09:07→20:52)
[2022-01-20] MEDS: DOCUSATE SODIUM 250 MG CAPSULE PO SCH ×2 (09:07→20:52)
[2022-01-20] MEDS: TAMSULOSIN HCL 0.4 MG CAP PO SCH (09:07)
[2022-01-20] MEDS: METOPROLOL TARTRATE 25 MG TABLET PO SCH ×2 (09:08→20:53)
[2022-01-20] MEDS: FAMOTIDINE 20 MG TABLET PO SCH (09:08)
[2022-01-20] MEDS: lisinopriL 20 MG TABLET PO SCH (09:08)
[2022-01-20] MEDS: D5/0.45 NS 1,000 ML IV SCH ×2 (09:09→18:50)
[2022-01-20] MEDS: ENOXAPARIN SODIUM 30 MG/0.3 ML SYRINGE SQ SCH (09:10)
[2022-01-20] MEDS: SOD FERRIC GLUC COMPLEX/SUC 125 MG in NS 100 ML IV SCH (09:21)
--- NOTE | 2022-01-20 10:12 | NUR ---
RN NOTE/ INCONTINENT CARE DONE: INCONTINENT CARE DONE. SKIN INTACT. NO S/S OF ACUTE DISTRESS NOTED. FALL, SAFETY AND ASPIRATION MEASURES PROVIDED.
--- NOTE | 2022-01-20 10:56 | NUR ---
DISCHARGE PLANNING Received call from Jagruti at [facility], updated on pt status. States will be working on getting auth from insurance today.
[2022-01-20 11:22] VITALS: BP_SYST 156
--- NOTE | 2022-01-20 12:35 | NUR ---
Discharge Planning: DCP lm for Jagruti at [facility] [phone], following up on room. DCP to follow up Addendum: 01/20/22 at 1541 by Consuelo Chavez DP patient accepted to [facility] [phone] auth.
--- NOTE | 2022-01-20 12:49 | NUR ---
Nutrition F/U Admitting Diagnosis ALOC, overdose Medical History Comment: Per EMR review, PMH includes massive stroke. Pt also found w/ renal failure, altered mental status, and dehydration per EMR review 01/15. SARS-CoV-2 Ag (Rapid) Negative 01/09. Subjective Information 01/12 Swallow eval: Recommended Regular texture w/ thin liquids RD bedside visit deferred d/t high RD load. Per EMR review, pt continues to have poor PO intake average of 25% x12 meal records; abd is soft and non-distended w/ active bowel sounds; last BM x1 today; Harjit scale: 15, no PIs noted. Renal parameters improved. Pt is not yet meeting nutritional needs. Current Diet Order/Nutrition Support Regular, Ensure Enlive TID x4 days Pertinent Medications lorpessor, pepcid, lovenox, colace, D5%NS at 100 ml/hr (408 kcal/day), Procardia, Lisinpril, Ferric Sodium Gluconate Pertinent Labs (01/20) H/H 8.6L/26.6L, BG 106H, BUN 11 WNL, Cr 1.23 WNL Height (Feet) 5 feet Height (Inches) 9.00 inches Weight (Pounds) 169 pounds -- stable since 01/10 Weight (Calculated Kilograms) 76.833521 kilograms Patient Weight 76.657 kg Body Mass Index 24.95 kg/m2 Usual Weight 220 lbs %UBW 77 %IBW 106 [place]/Adjusted Body Weight 160#/72.7 kg Recent Weight Change Yes - 51# unintentional wt loss/23% wt change within 3 mo d/t low appetite Weight Status Appropriate Usual Diet At Home Regular diet Estimated Energy Expenditure (kcals/day) 2230-8355 kcals/day (25-30 kcals/kg CBW for maintenance) Estimated Protein Required (g/day) 46-61 g/day (.6-.8 g/kg CBW d/t RF) Estimated Fluid Required (l/day) Per MD d/t RF Problem/Etiology/Signs/Symptoms Predicted suboptimal PO intake R/T poor appetite AEB poor PO intake records. *Ongoing Unintentional wt loss R/T acute on chronic health condition AEB Hx of massive CVA 3 mo ago and 51# wt loss/23% wt change within 3 mo a/w low appetite. *Ongoing Expected Outcomes/Goals Monitor appetite, consider EN initiation if swallow eval does not warrant PO intake, goal of pt meeting more than 75% of estimated nutritional intake, labs trending WNL, normal GI function, skin integrity/weight maintenance. Dietitian Recommendations * Regular diet w/ Ensure Enlive TID (ONS yields 1050 kcal/day, 60 gm protein/day) * Encourage increase PO intakes when awake/alert Follow Up Moderate Risk: F/U in 3-5 days RU, [place]
[2022-01-20 15:22] VITALS: BP_SYST 150
--- NOTE | 2022-01-20 19:15 | NUR ---
CLOSING NOTE: PATIENT RESTING IN BED. NO S/S OF ACUTE DISTRESS NOTED. NEEDS MET THROUGHOUT SHIFT. ENDORSED TO POWER ELECTRONICS RESEARCH ENGINEER RN.
[2022-01-20] MEDS: BACLOFEN 10 MG TABLET PO SCH (20:52)
[2022-01-20] MEDS: AMITRIPTYLINE HCL 10 MG TABLET (ELAVIL) PO SCH (20:52)
[2022-01-20 23:05] VITALS: BP_SYST 127
[2022-01-21] VITALS (7 sets, daily range): BP systolic 129–158
[2022-01-21] MEDS: D5/0.45 NS 1,000 ML IV SCH ×2 (05:07→13:41)
[2022-01-21 06:20] LABS: BASOPHILS # (AUTO) 0.1 K/uL (0.0-0.2); BASOPHILS % (AUTO) 0.9 % (0.0-2.0); EOSINOPHILS # (AUTO) 0.3 K/uL (0.0-0.4); EOSINOPHILS % (AUTO) 4.7 % (0.0-4.0); HEMATOCRIT 29.7 % (36-54); HEMOGLOBIN 9.6 g/dL (14.0-18.0); LYMPHOCYTES # (AUTO) 1.5 K/uL (1.0-5.5); MEAN CORPUSCULAR HEMOGLOBIN 26 pg (27-31); MEAN CORPUSCULAR HGB CONC 32 % (32-36); MEAN CORPUSCULAR VOLUME 81 fL (79.0-98.0); MONOCYTES # (AUTO) 0.4 K/uL (0.0-1.0); MONOCYTES % (AUTO) 6.2 % (1.7-9.3); NEUTROPHILS # (AUTO) 4.4 K/uL (1.8-7.7); NEUTROPHILS % (AUTO) 66.2 % (40.0-70.0); RED BLOOD CELL COUNT(AUTO) 3.66 MIL/uL (4.2-6.2); RED CELL DISTRIBUTION WIDTH 18.1 % (9.0-15.0); WHITE BLOOD COUNT (AUTO) 6.7 K/uL (4.8-10.8)
--- NOTE | 2022-01-21 06:50 | NUR ---
PATIENT RESTING IN BED. NO VERBALIZATION OF PAIN OR DISCOMFORT. NEEDS MET THROUGHOUT SHIFT. ENDORSING CONTINUITY OF CARE TO DAY SHIFT RN
[2022-01-21 07:31] LABS: CALCIUM 8.3 mg/dL (8.4-11.0); CREATININE 1.12 mg/dL (0.55-1.30); POTASSIUM 3.8 mmol/L (3.5-5.1)
--- NOTE | 2022-01-21 09:24 | NUR ---
CRITICAL LAB Received critical lab (Platelets [phone]) from Natasha in the Lab at 0914. Called and reported lab results to Dr Fletcher's office at 0922, spoke to Jamel. Awaiting call back from .
--- NOTE | 2022-01-21 09:39 | NUR ---
Discharge Planning: DCP arrange transport per CM with [facility] [phone] 12:00pm P/U BLS to [facility] [phone] Rm 4. Nurse made aware by CM, patient packet taken to nurse station.
[2022-01-21] MEDS: DOCUSATE SODIUM 250 MG CAPSULE PO SCH ×2 (09:47→21:54)
[2022-01-21] MEDS: NIFEdipine 30 MG TAB.ER.24 PO SCH (09:48)
[2022-01-21] MEDS: QUEtiapine FUMARATE 25 MG TABLET PO SCH ×2 (09:49→21:55)
[2022-01-21] MEDS: TAMSULOSIN HCL 0.4 MG CAP PO SCH (09:49)
[2022-01-21] MEDS: METOPROLOL TARTRATE 25 MG TABLET PO SCH ×2 (09:49→21:57)
[2022-01-21] MEDS: GABAPENTIN 300 MG CAPSULE PO SCH ×3 (09:49→21:55)
[2022-01-21] MEDS: FAMOTIDINE 20 MG TABLET PO SCH (09:49)
[2022-01-21] MEDS: lisinopriL 20 MG TABLET PO SCH ×2 (09:50→21:56)
[2022-01-21] MEDS: ENOXAPARIN SODIUM 30 MG/0.3 ML SYRINGE SQ SCH (09:52)
[2022-01-21] MEDS: SOD FERRIC GLUC COMPLEX/SUC 125 MG in NS 100 ML IV SCH (10:07)
--- NOTE | 2022-01-21 10:19 | NUR ---
SPOKE TO DR BHARDWAJ Spoke to Dr Bhardwaj and reported critical lab values. stated that he would look at patient's chart, no new orders at this time.
--- NOTE | 2022-01-21 10:20 | NUR ---
REPORT GIVEN TO [facility] Spoke to Tiffany RN at [facility] and gave report. All questions answered.
[2022-01-21 11:26] LABS: PLATELET COUNT (AUTO) 776 K/uL (130-430)
--- NOTE | 2022-01-21 12:35 | NUR ---
UNABLE TO DISCHARGE Unable to discharge patient due to elevated blood pressure. Dr Bhardwaj aware, will administer PRN medications and monitor patient. Plan to D/C later today when blood pressure is decreased.
[2022-01-21] MEDS: hydrALAZINE HCL 20 MG/ML VIAL IVP PRN (14:19)
--- NOTE | 2022-01-21 17:03 | NUR ---
SPOKE TO and [facility] Spoke to Dr Bhardwaj and updated him on the patient's blood pressure. MD provided new orders. Called [facility] and updated them on the patient's condition and let them know that the patient would not be discharged today as planned.
--- NOTE | 2022-01-21 19:30 | NUR ---
CLOSING NOTE Patient in bed resting, AxO x2, oriented to self and year. No sign of respiratory distress, patient denies pain. Offered emotional support, patient declines. Provided an update on his plan of care including possible discharge tomorrow. Provided handoff to night nurse, all needs met at this time and safety checks made.
[2022-01-21] MEDS: BACLOFEN 10 MG TABLET PO SCH (21:54)
[2022-01-21] MEDS: AMITRIPTYLINE HCL 10 MG TABLET (ELAVIL) PO SCH (21:56)
[2022-01-22 01:21] VITALS: BP_SYST 123
[2022-01-22] MEDS: D5/0.45 NS 1,000 ML IV SCH ×2 (06:08→20:45)
--- NOTE | 2022-01-22 07:18 | NUR ---
PHYSICAL THERAPY CO-SIGN The Physical Therapy Progress Notes documented by Institute Director have been reviewed. Reviewed/Co-Signed by: Michael Oliver Documentation Done by: BAILEY MORENO PTA Addendum: 01/22/22 at 0720 by Michael Oliver PT Amended: Links added.
--- NOTE | 2022-01-22 07:20 | NUR ---
PHYSICAL THERAPY CO-SIGN The Physical Therapy Progress Notes documented by Production Operations Engineer have been reviewed. Reviewed/Co-Signed by: Michael Oliver Documentation Done by: BAILEY MORENO PTA Addendum: 01/22/22 at 0720 by Michael Oliver PT Amended: Links added.
--- NOTE | 2022-01-22 07:21 | NUR ---
Handoff with BENOIT Aguilar. James Colón RN
--- NOTE | 2022-01-22 08:00 | NUR ---
Received report from James LABOY. Pt is in bed resting with no s/s of distress. Breakfast at bedside. pt has a 14F duke present and intact. There is also a 22g IV placed on left hand that is intact, no infiltration noted. 5% Dextrose w/ half NS running at 2ml/hr that was initiated by James LABOY. VSS. Pt has no chest pain and no sob. Pt is A&Ox2. Skin intact. Bed in lowest position and call light within reach. Urinal at bedside. Educated pt on the use of the call light and to press the call light for assistance if he needs to get out of bed. Pt states he understands with no further questions.
[2022-01-22] MEDS: SOD FERRIC GLUC COMPLEX/SUC 125 MG in NS 100 ML IV SCH (09:15)
[2022-01-22] MEDS: QUEtiapine FUMARATE 25 MG TABLET PO SCH ×2 (09:21→20:42)
[2022-01-22] MEDS: TAMSULOSIN HCL 0.4 MG CAP PO SCH (09:21)
[2022-01-22] MEDS: METOPROLOL TARTRATE 25 MG TABLET PO SCH ×2 (09:21→20:42)
[2022-01-22] MEDS: DOCUSATE SODIUM 250 MG CAPSULE PO SCH ×5 (09:21→20:59)
[2022-01-22] MEDS: FAMOTIDINE 20 MG TABLET PO SCH (09:21)
[2022-01-22] MEDS: NIFEdipine 30 MG TAB.ER.24 PO SCH (09:21)
[2022-01-22] MEDS: GABAPENTIN 300 MG CAPSULE PO SCH ×3 (09:21→20:43)
[2022-01-22] MEDS: lisinopriL 20 MG TABLET PO SCH ×2 (09:21→20:43)
[2022-01-22] MEDS: ENOXAPARIN SODIUM 30 MG/0.3 ML SYRINGE SQ SCH (09:22)
[2022-01-22 11:28] VITALS: BP_SYST 115
--- NOTE | 2022-01-22 11:47 | NUR ---
All scheduled medications have been given at this time. Pt has no c/o. Called case packer to notify them that pt's BP is within normal limits, there was no response so a message was left.
--- NOTE | 2022-01-22 12:32 | NUR ---
Talked with manager rn case and stated they will talk with Dr. Bhardwaj about discharging pt.
[2022-01-22] MEDS ORDERED: MEGESTROL ACETATE 400 MG/10 ML UDC PO ONE (13:30)
[2022-01-22] MEDS ORDERED: MEGE400O4 PO (13:38)
--- NOTE | 2022-01-22 14:25 | NUR ---
Discharge Planning: DCP arranged transport with [facility] [phone] between 5:00pm-5:30pm to [facility] [phone]. Patient packet at nurse station. Addendum: 01/22/22 at 1602 by Consuelo Chavez DP DCP placed transportation with [facility] [phone] will call per CM request facility has not received auth.
--- NOTE | 2022-01-22 14:29 | NUR ---
Spoke w/ patient's mother , she is concerned about the patient's on going depression. She would like him to go home, she feels like he would be less depressed at home. I explained to her that he is currently not safe to go home, he can only take 2 steps w/maximum assistance. I told her when he was stronger he could go home. I spoke to PEDRO Harrington at [facility], and asked her to get a psychiatric evaluatin and treatment when he returned there. She stated that could be done. We are currently waiting for authorization for him to return to [facility] for continued PT.
[2022-01-22 15:41] VITALS: BP_SYST 135
--- NOTE | 2022-01-22 15:55 | NUR ---
called to give report at [facility] and they stated pet is not accepted yet because the heel caser needs to go through referral line first in order to get approved. Charge nurse made aware and heel caser was called to inform them to call the referral line. Pt is in bed resting. A&Ox3. No c/o. All ordered medications have been given at this time. Bed in lowest position. Urinal at bedside. Call light within reach.
[2022-01-22 15:58] VITALS: BP_SYST 112
--- NOTE | 2022-01-22 16:40 | NUR ---
HOLD DISCHARGE DIVYA FROM [facility] UNIT CALLED AND SAID THAT THEY ARE STILL WAITING FOR AUTHORIZATION AND DISCHARGE WILL NOT HAPPENED TODAY.
[2022-01-22 17:16] VITALS: BP_SYST 129
[2022-01-22 20:05] VITALS: BP_SYST 135
[2022-01-22] MEDS: MEGESTROL ACETATE 400 MG/10 ML UDC PO SCH ×3 (20:42→21:00)
[2022-01-22] MEDS: BACLOFEN 10 MG TABLET PO SCH (20:43)
[2022-01-22] MEDS: AMITRIPTYLINE HCL 10 MG TABLET (ELAVIL) PO SCH ×2 (20:43→21:00)
[2022-01-23 00:59] VITALS: BP_SYST 126
[2022-01-23 08:00] VITALS: BP_SYST 130
--- NOTE | 2022-01-23 08:00 | NUR ---
PHYSICAL THERAPY IS BEING HELD TODAY BECAUSE THE PATIENT IS PENDING TESTING TO RULE OUT LUE DVT. HE IS ALSO VERY AGITATED. SPOKE WITH RN.
--- NOTE | 2022-01-23 08:10 | NUR ---
Initial Note Patient awake and alert. Unable to assess orientation due to patient nonverbal at this time. Noted LUE swelling and erythema on forearm. IV infiltrated and noted bent catheter upon removal. Discontinued catheter and IV fluids at this time. Will notify . Reyes catheter in place, patent, and draining to gravity. Call light in reach and bed locked in lowest position with alarm on.
--- NOTE | 2022-01-23 08:15 | NUR ---
Paged Dr. Bhardwaj paged.
--- NOTE | 2022-01-23 08:20 | NUR ---
Notes Ayesha, ENDS DOWN CHECKER notified of patient's LUE swelling and redness. Will carry out new orders.
[2022-01-23] MEDS: DOCUSATE SODIUM 250 MG CAPSULE PO SCH ×2 (09:00→20:38)
[2022-01-23] MEDS: QUEtiapine FUMARATE 25 MG TABLET PO SCH ×2 (09:00→20:37)
[2022-01-23] MEDS: GABAPENTIN 300 MG CAPSULE PO SCH ×3 (09:00→20:36)
[2022-01-23] MEDS: TAMSULOSIN HCL 0.4 MG CAP PO SCH (09:00)
[2022-01-23] MEDS: NIFEdipine 30 MG TAB.ER.24 PO SCH (09:00)
[2022-01-23] MEDS: lisinopriL 20 MG TABLET PO SCH ×2 (09:00→20:37)
[2022-01-23] MEDS: MEGESTROL ACETATE 400 MG/10 ML UDC PO SCH ×2 (09:00→20:37)
[2022-01-23] MEDS: METOPROLOL TARTRATE 25 MG TABLET PO SCH ×2 (09:00→20:36)
[2022-01-23] MEDS: ENOXAPARIN SODIUM 30 MG/0.3 ML SYRINGE SQ SCH (09:00)
[2022-01-23] MEDS: SOD FERRIC GLUC COMPLEX/SUC 125 MG in NS 100 ML IV SCH (09:00)
[2022-01-23] MEDS: FAMOTIDINE 20 MG TABLET PO SCH (09:00)
--- NOTE | 2022-01-23 10:12 | NUR ---
Patient Refused Medications and IV Insertion Will notify MD and will continue to monitor and educate. Patient is confused and continuously repeating sentences.
[2022-01-23 11:31] VITALS: BP_SYST 150
--- NOTE | 2022-01-23 12:10 | NUR ---
Discharge Planning: DCP arranged transportation with [facility] [phone] 10:00am Wednesday01/24/2022 to [facility] [phone].
--- NOTE | 2022-01-23 12:30 | NUR ---
Spoke with patient's mom regarding updates and refusal of medications/IV.
[2022-01-23 15:34] VITALS: BP_SYST 130
--- NOTE | 2022-01-23 16:29 | NUR ---
Notes Patient resting in bed, awake and alert. No pain or distress. Patient continues to refuse daily medications e.g. Lovenox and IV insertion stating "what does it matter". Will continue to monitor and educate. Call light in reach, bed in lowest position.
[2022-01-23 17:36] VITALS: BP_SYST 147
--- NOTE | 2022-01-23 18:54 | NUR ---
Closing Note Patient asleep in bed, no pain or distress observed. Patient refused IV reinsertion and daily A.M. medications. Provided education and encouragement throughout shift. Call light in reach on right side and bed locked in lowest position with alarm on. Will monitor and endorse to night nurse.
[2022-01-23 20:20] VITALS: BP_SYST 131
[2022-01-23] MEDS: BACLOFEN 10 MG TABLET PO SCH (20:36)
[2022-01-23] MEDS: AMITRIPTYLINE HCL 10 MG TABLET (ELAVIL) PO SCH (20:37)
[2022-01-24 00:20] VITALS: BP_SYST 128
[2022-01-24] MEDS: D5/0.45 NS 1,000 ML IV SCH (02:00)
--- NOTE | 2022-01-24 07:30 | NUR ---
Initial Note Patient lying awake in bed, alert, and oriented x 4. Patient is more talkative and is not repeating himself this morning. No pain or distress. Agrees to insert IV; new IV inserted to right forearm 22 g. Line patent with blood return. Patient to be discharged to [facility] today; [facility] ETA 1000. Call light in reach and bed in lowest position with alarm on. Will continue to monitor and encouraged to call.
[2022-01-24 08:00] VITALS: BP_SYST 152
[2022-01-24] MEDS: MEGESTROL ACETATE 400 MG/10 ML UDC PO SCH (08:59)
[2022-01-24] MEDS: NIFEdipine 30 MG TAB.ER.24 PO SCH (09:01)
[2022-01-24] MEDS: QUEtiapine FUMARATE 25 MG TABLET PO SCH (09:01)
[2022-01-24] MEDS: TAMSULOSIN HCL 0.4 MG CAP PO SCH (09:01)
[2022-01-24] MEDS: DOCUSATE SODIUM 250 MG CAPSULE PO SCH (09:01)
[2022-01-24] MEDS: FAMOTIDINE 20 MG TABLET PO SCH (09:01)
[2022-01-24] MEDS: lisinopriL 20 MG TABLET PO SCH (09:01)
[2022-01-24] MEDS: SOD FERRIC GLUC COMPLEX/SUC 125 MG in NS 100 ML IV SCH (09:02)
[2022-01-24] MEDS: METOPROLOL TARTRATE 25 MG TABLET PO SCH (09:02)
[2022-01-24] MEDS: ENOXAPARIN SODIUM 30 MG/0.3 ML SYRINGE SQ SCH (09:03)
[2022-01-24] MEDS: GABAPENTIN 300 MG CAPSULE PO SCH (09:03)
--- NOTE | 2022-01-24 10:50 | NUR ---
D/C Patient Patient given medication reconciliation form and D/C instructions. Exit Care provided. Patient verbalized understanding. MD discussed with patient the results and treatment provided. Patient in stable condition for transportation via gurney through [facility]. ID band removed. IV catheter removed, intact and dressing applied, no active bleeding. Rx sent to pharmacy. Patient educated on symptom management. All belongings sent with patient.
== END 2022-01-24 10:55 | DRG 871 ==
LOC: SED 08:04 → SMU 14:57 → STU 01-11 23:18 → SMU 01-21 23:44
PROVIDERS: ADMIT Internal Medicine; ATTEND Internal Medicine
PROC: 4A10X4Z Monitoring of Central Nervous Electrical Activity, External Approach (ICD-10-PCS; principal; 2022-01-12)
DX: A41.9 Sepsis, unspecified organism (principal); G93.41 Metabolic encephalopathy; E43 Unspecified severe protein-calorie malnutrition; I69.354 Hemiplegia and hemiparesis following cerebral infarction affecting left non-dominant side; N17.9 Acute kidney failure, unspecified; I62.9 Nontraumatic intracranial hemorrhage, unspecified; Z20.822 Contact with and (suspected) exposure to COVID-19; N31.9 Neuromuscular dysfunction of bladder, unspecified; K29.70 Gastritis, unspecified, without bleeding; G40.909 Epilepsy, unspecified, not intractable, without status epilepticus; E86.0 Dehydration; K59.00 Constipation, unspecified; I12.9 Hypertensive chronic kidney disease with stage 1 through stage 4 chronic kidney disease, or unspecified chronic kidney disease; N18.9 Chronic kidney disease, unspecified; Z88.1 Allergy status to other antibiotic agents; Z88.8 Allergy status to other drugs, medicaments and biological substances; Z87.891 Personal history of nicotine dependence; Z68.25 Body mass index [BMI] 25.0-25.9, adult
CPT/HCPCS: 36415; 70450-TC; 70551; 71045; 76376; 76770; 80048; 80053; 80061; 80307; 81000; 82009; 82043; 82140; 82550; 82570; 83540; 83550; 83605; 83735; 84100; 84302; 84443; 85025; 85379; 85610-TC; 85730-TC; 86140; 87040; 87081; 87086; 92610-GN; 93005; 93306; 93922; 93971; 95816; 97110-GP; 97112-GP; 97163-GP; 97530-GP; 99285; G0378; G0480; G0481; G0482; J0360; J0696; J1650; J2060; J2916; J7060